=== PATIENT | female | born 1960 | race Caucasian/White ===

== ENCOUNTER 2017-01-25 09:52 | Day surgery (SDC) | payer BC ==
--- NOTE | 2017-01-24 11:38 | HP ---
CC: Clemente Melendrez NP; [facility], [address], [place], attn: Joslyn Tavarez MD* ADMITTING HISTORY AND PHYSICAL: DATE OF ADMISSION: 01/25/17 ADMITTING DIAGNOSES: 1. Gross hematuria. 2. Left hydronephrosis. 3. Calculus, left proximal ureter. PLANNED PROCEDURE: Left ureteroscopy, possible laser and stent insertion ( possibly to be followed in near future by shock wave lithotripsy). SURGEON: Dr. Ramos. HISTORY OF PRESENT ILLNESS: Radha Woody is a 56-year-old lady with a history of recurrent renal calculi. She was recently evaluated for gross hematuria and left flank pain and was noted to have a 4-mm calculus in the proximal left ureter. This was more than 10 days ago and she was managed conservatively, but she continues to have a left flank discomfort and a recent renal ultrasound revealed no change in the position of calculus in the left proximal ureter with mild left hydronephrosis and reduced left ureteral jets. She was given the option of continuing conservative management, but would like to try to have the stone removed and also understands that because of proximal location of the calculus, this may be a 2- stage procedure with an initial stent insertion, possibly or probably followed by lithotripsy. PAST MEDICAL HISTORY: Significant for: 1. Psoriasis and psoriatic arthritis. 2. Hypertension. 3. Diabetes mellitus. 4. Recurrent renal calculi. MEDICATIONS ON ADMISSION: 1. Ventolin 2 puffs every 4 hours as needed. 2. Verapamil 80 mg daily. 3. Toujeo 20 units daily. 4. Januvia 100 mg daily. 5. Metformin 100 mg twice a day. 6. NicoDerm patches for 28 days. 7. Amitriptyline 10 mg 2 tablets at bedtime p.r.n. for migraines. 8. Fluoxetine 20 mg daily. 9. Tizanidine 4 mg 3 times a day p.r.n. muscle spasm. 10. Aspirin 81 mg daily. ALLERGIES: No known drug allergies. REVIEW OF SYSTEMS: She denies any chest pain or shortness of breath. She has a long-standing smoking history (40 pack years). PHYSICAL EXAMINATION GENERAL: Reveals a pleasant middle-aged lady. VITAL SIGNS: Blood pressure is 130/82, pulse 98 per minute, oxygen saturation 98%, temperature . LUNGS: Clear bilaterally. CARDIOVASCULAR: Regular rate and rhythm, S1 and S2. ABDOMEN: Soft with mild left flank tenderness. IMPRESSION: A 56-year-old diabetic with persistent left proximal ureteral calculus. PLANNED PROCEDURE: Left ureteroscopy, possible laser and stent insertion ( possibly to be followed in near future by lithotripsy). [id number] #: [id number] MTDD
[~2017-01-25 09:52] MED LIST: Buffered Lidocaine 0.9% SYRIN* 5 ML/SYR SYRINGE INTRADERM ONE
[2017-01-25] MEDS ORDERED: cefTRIAXone(*) 2 GM ADDV.VIAL IVPB ONE (09:53)
[2017-01-25] MEDS ORDERED: Buffered Lidocaine 0.9% SYRIN* 5 ML/SYR SYRINGE ONE (09:53)
[2017-01-25] MEDS ORDERED: Iohexol 180 (CONTRAST) 10 ML SDV IV ONE (10:19)
[2017-01-25] MEDS ORDERED: Lidocaine 2% PF * 5 ML VIAL ONE (10:40)
[2017-01-25] MEDS ORDERED: fentaNYL* 50 MCG/ML 2 ML VIAL (100 MCG VIAL) ONE ×2 (10:40→12:20)
[2017-01-25] MEDS ORDERED: Propofol* 10 MG/ML 20 ML BTL IV PUSH ONE (10:40)
[2017-01-25] MEDS ORDERED: fentaNYL* 50 MCG/ML 2 ML VIAL (100 MCG VIAL) IV PRN (10:56)
[2017-01-25] MEDS ORDERED: DiMENhydriNATE IV* 50 MG/ML VIAL IV PUSH PRN (10:56)
--- NOTE | 2017-01-25 12:03 | RAD ---
INDICATION: LEFT ureteral stent placement. COMPARISON: October 27, 2014 CT. TECHNIQUE: 11 seconds fluoroscopy. FINDINGS: Spot images document a LEFT retrograde pyelogram without significant caliectasis. LEFT ureteral stent placed. IMPRESSION: Procedural fluoroscopy. CPT II Codes: 6045F
[2017-01-25] MEDS ORDERED: oxyCODONE/Acetamin 5/325 MG* TAB ONE ×2 (12:20→12:49)
[2017-01-25] MEDS: oxyCODONE/Acetamin 5/325 MG* TAB PO PRN ×2 (12:26→12:50)
[2017-01-25 13:11] VITALS: BP 144/81
--- NOTE | 2017-01-26 02:14 | OP ---
CC: Clemente Melendrez NP * DATE OF OPERATION: 01/25/17 - [facility] DATE OF : 64 SURGEON: Eros Ramos MD. ANESTHESIOLOGIST: Dr. Abdi. ANESTHESIA: General. PRE-OP DIAGNOSES: 1. Left hydronephrosis. 2. Calculus, left proximal ureter. POST-OP DIAGNOSES: 1. Left hydronephrosis. 2. Calculus, left proximal ureter. OPERATIVE PROCEDURE: Cystoscopy, left retrograde pyelogram, left ureteroscopy and stone extraction and left stent insertion. COMPLICATIONS: None. POSTOPERATIVE CONDITION: Stable. OPERATIVE FINDINGS: A 4 to 5 mm calculus, left proximal ureter, but fairly narrow ureter. STENT USED: A 6-Trinidadian stent, left ureter. INDICATIONS: Radha Woody is a 56-year-old lady who has had recurrent episodes of gross hematuria and left flank discomfort secondary to calculus in the left proximal ureter. DESCRIPTION OF PROCEDURE: After induction of general anesthesia, the patient was placed in dorsal lithotomy position. Sequential compression devices were in place and functioning. Initial cystoscopy revealed a normal-appearing bladder. A guidewire was introduced into the left ureter. Retrograde pyelogram revealed mild fullness of the left collecting system. A 6-Trinidadian semi-rigid ureteroscope was introduced and advanced under direct vision into the left ureter. The entire ureter was fairly narrow in caliber and the ureteroscope was carefully advanced under direct vision. At the level of the proximal left ureter, a 4 to 5 mm calculus was noted. This was engaged using a three-pronged grasper and was pulled down into the bladder. It was retrieved from the bladder and fragmented into 2 pieces in the process of retrieving from the bladder and the pieces were sent for analysis. The ureteroscope was carefully advanced back to make sure there were no additional calculi and none were noted. A 6-Trinidadian stent was introduced and positioned under fluoroscopy with good proximal and distal positioning obtained. The bladder was emptied. The patient tolerated the procedure satisfactorily and was transferred back to the recovery area in stable condition. [id number] #: [id number] [facility]
== END 2017-01-25 13:14 | disposition home or self-care (01) ==
LOC: OR 09:52
PROVIDERS: ATTEND Urology
DX: N13.2 Hydronephrosis with renal and ureteral calculous obstruction (principal); R31.0 Gross hematuria; E11.9 Type 2 diabetes mellitus without complications; Z79.84 Long term (current) use of oral hypoglycemic drugs; I10 Essential (primary) hypertension; L40.9 Psoriasis, unspecified; L40.50 Arthropathic psoriasis, unspecified; Z79.899 Other long term (current) drug therapy
CPT/HCPCS: 74420; 82365; 88300; A9270-GY; C1876; J0696; J2704; J3010

== ENCOUNTER 2021-09-20 05:32 | Observation (INO) ==
[~2021-09-20 05:32] MED LIST changes: -Buffered Lidocaine 0.9% SYRIN* 5 ML/SYR SYRINGE INTRADERM ONE; +Buffered Lidocaine 1% SYRIN 1 ml INTRADERM ONE; +Famotidine IV 10 MG/ML 2 ml VIAL (20 mg) IV ONE; +HYDROcodone/ACETAMIN 5/325 mg TAB PO PRN; +Lactated Ringers 1000 ml BAG 1,000 ML IV SCH; +Metoclopramide 5 MG/ML VIAL (10 mg) IV PRN; +Naloxone 0.4 mg VIAL 0.4 mg/ml 1 ml VIAL IV PRN; +Ondansetron 4 mg VIAL 2 MG/ML 2 ml VIAL IV PRN; +fentaNYL 100 mcg/2 ml 50 MCG/ML VIAL IV PRN
[2021-09-20] MEDS ORDERED: ceFAZolin 2 GM PREMIX 2 GM/50 ML BAG ONE (05:56)
[2021-09-20] MEDS ORDERED: Famotidine IV 10 MG/ML 2 ml VIAL (20 mg) ONE (05:56)
[2021-09-20 06:11] LABS: ABS Basophils 0.1 10^3/ul (0-0.2); ABS Eosinophils 0.2 10^3/ul (0-0.6); ABS Lymphocytes 2.5 10^3/ul (1.0-4.8); ABS Neutrophils 5.7 10^3/ul (1.5-7.7); Eosinophil % 1.7 %; Hematocrit 37 % (35-47); Hemoglobin 12.5 g/dL (12.0-16.0); Lymphocyte % 26.5 %; Mean Corpuscular HGB Conc 34 g/dL (31-36); Mean Corpuscular Hemoglobin 32 pg (27-31); Mean Corpuscular Volume 97 fL (80-97); Mean Platelet Volume 6.9 fL (7.4-10.4); Platelet Count 484 10^3/uL (150-450); Red Blood Count 3.88 10^6 /uL (3.70-4.87); Red Cell Distribution Width 14 % (10-15); White Blood Count 9.5 10^3/uL (3.5-10.8)
[2021-09-20 06:18] LABS: INR 1.06 (0.86-1.15)
[2021-09-20 06:50] LABS: Calcium 9.8 mg/dL (8.6-10.3); Potassium 4.5 mmol/L (3.5-5.0); eGFR CKD-EPI 98.5 (>60)
[2021-09-20] MEDS ORDERED: Rocuronium 50 mg VIAL 10 mg/ml 5 ml VIAL (50 mg) ONE (07:13)
[2021-09-20] MEDS ORDERED: fentaNYL 250 mcg/5 ml 50 MCG/ML 5 ml VIAL (250 MCG) ONE (07:13)
[2021-09-20] MEDS ORDERED: Midazolam 2 mg/2 ml VIAL 1 mg/ml 2 ml VIAL (2 mg) ONE (07:13)
[2021-09-20] MEDS ORDERED: Dexamethasone IV 4 MG/ML VIAL 1 ml VIAL ONE ×2 (08:09→13:32)
[2021-09-20] MEDS ORDERED: HYDROmorphone 0.5 MG/0.5 ML SYRINGE ONE ×4 (08:19→11:45)
[2021-09-20] MEDS ORDERED: Ketamine HCL 50 mg/ml 10 ml VIAL (500 MG) ONE (09:07)
[2021-09-20] MEDS ORDERED: Labetalol IV 5 MG/ML 20 ml VIAL ONE (09:22)
[2021-09-20] MEDS ORDERED: Ondansetron 4 mg VIAL 2 MG/ML 2 ml VIAL ONE (11:24)
[2021-09-20] MEDS ORDERED: ceFAZolin VIAL VIAL ONE (12:01)
[2021-09-20] MEDS ORDERED: Lactulose 30 ml UDC PO PRN (12:10)
[2021-09-20] MEDS ORDERED: Ondansetron 4 mg VIAL 2 MG/ML 2 ml VIAL IV PRN (12:10)
[2021-09-20] MEDS ORDERED: Magnesium Hydroxide LIQ 30 ML UDC PO PRN (12:10)
[2021-09-20] MEDS ORDERED: Ondansetron ODT 4 mg TAB 4 MG TAB PO PRN (12:10)
[2021-09-20] MEDS ORDERED: Albuterol HFA INHALER 8 gm MDI INH PRN (12:20)
[2021-09-20] MEDS ORDERED: EPINEPHRINE 0.3 MG/0.3 ML IM PRN (12:20)
[2021-09-20] MEDS ORDERED: AUTO INJECTOR IM PRN (12:20)
[2021-09-20] MEDS ORDERED: Mometasone 220 MCG MDI INH PRN (12:20)
[2021-09-20] MEDS ORDERED: GUSELKUMAB SUBCUT SCH (12:30)
[2021-09-20] MEDS ORDERED: [UNRECOGNIZED DRUG - OTHER] SUBCUT SCH (12:30)
[2021-09-20] MEDS ORDERED: Metoclopramide 5 MG/ML VIAL (10 mg) ONE (13:32)
[2021-09-20] MEDS ORDERED: Dextrose 50% Syringe 50 ml 25 GM/50 ML SYRINGE IV PUSH PRN (13:40)
[2021-09-20] MEDS: Lactated Ringers 1000 ml BAG 1,000 ML IV SCH (17:41)
[2021-09-20] MEDS: Morphine 2 MG/ML SYRINGE IV PRN (18:13)
[2021-09-20] MEDS: Magnesium Hydroxide LIQ 30 ML UDC PO SCH (21:06)
[2021-09-21] MEDS: Lactated Ringers 1000 ml BAG 1,000 ML IV SCH (05:19)
[2021-09-21 05:59] LABS: Hematocrit 31 % (35-47); Hemoglobin 10.2 g/dL (12.0-16.0); Platelet Count 417 10^3/uL (150-450)
[2021-09-21 06:51] LABS: Calcium 8.7 mg/dL (8.6-10.3); Potassium 4.3 mmol/L (3.5-5.0); eGFR CKD-EPI 105.7 (>60)
[2021-09-21] MEDS: Aspirin EC 81 mg TAB.EC (enteric coated) PO SCH (08:11)
[2021-09-21] MEDS: Magnesium Hydroxide LIQ 30 ML UDC PO SCH ×2 (08:11→22:21)
[2021-09-21] MEDS: Vitamin THERAPEUTIC TAB PO SCH (08:11)
[2021-09-21] MEDS: PTO:Verapamil PM 100 mg CAP (NF) PO SCH (08:18)
[2021-09-21] MEDS ORDERED: DAPAGLIFLOZIN 10 MG TAB (NF) PO SCH (09:00)
[2021-09-21] MEDS: Morphine 2 MG/ML SYRINGE IV PRN (11:05)
[2021-09-21] MEDS: Enoxaparin 40 MG/0.4 ML SYR SUBCUT SCH (12:28)
[2021-09-22 05:34] LABS: Hematocrit 35 % (35-47); Hemoglobin 11.4 g/dL (12.0-16.0); Mean Platelet Volume 7.3 fL (7.4-10.4); Platelet Count 420 10^3/uL (150-450)
[2021-09-22] MEDS: Magnesium Hydroxide LIQ 30 ML UDC PO SCH (08:10)
[2021-09-22] MEDS: PTO:Verapamil PM 100 mg CAP (NF) PO SCH (08:21)
[2021-09-22] MEDS: Aspirin EC 81 mg TAB.EC (enteric coated) PO SCH (08:25)
[2021-09-22] MEDS: Vitamin THERAPEUTIC TAB PO SCH (08:25)
[2021-09-22 12:50] VITALS: BP 125/64
[2021-09-22] MEDS: Enoxaparin 40 MG/0.4 ML SYR SUBCUT SCH (13:14)
[2021-09-23] MEDS ORDERED: Dulaglutide (NF) 1.5 MG/0.5 ML SYRINGE SUBCUT SCH (12:20)
== END 2021-09-22 14:20 | disposition home or self-care (01) ==
LOC: OR 05:32 → SSU 05:32
PROVIDERS: ADMIT Orthopaedic Surgery; ATTEND Orthopaedic Surgery